=== PATIENT | male | born 1965 | race Caucasian/White ===

== ENCOUNTER → 2018-10-04 | Outpatient (CLI) | payer BC | END | disposition home or self-care (01) | LOC: RAH 08:24 | PROVIDERS: ATTEND Internal Medicine Hepatology | DX: R16.1 Splenomegaly, not elsewhere classified (principal); K75.81 Nonalcoholic steatohepatitis (NASH) | CPT/HCPCS: 76705; 93975 ==

== ENCOUNTER 2021-01-04 22:41 | Emergency (ER) | payer BC ==
[2021-01-04 23:11] LABS: APPEARANCE,URINE Clear (CLEAR); BILIRUBIN,URINE Negative (NEGATIVE); COLOR,URINE Yellow (YELLOW); GLUCOSE, URINE (UA) 500 mg/dL (NEGATIVE); KETONES,URINE Trace mg/dL (NEGATIVE); LEUKOCYTE ESTERASE ,URINE Negative (NEGATIVE); NITRATE,URINE Negative (NEGATIVE); OCCULT BLOOD,URINE Small (NEGATIVE); PH,URINE 5.5 (5.0-8.0); PROTEIN,URINE 300 mg/dL (NEGATIVE)
[2021-01-04 23:20] LABS: AMPHET/METH SCREEN,URINE NEGATIVE (NEGATIVE); BARBITURATE SCREEN, URINE NEGATIVE (NEGATIVE); BENZODIAZEPINES SCREEN,URINE NEGATIVE (NEGATIVE); CANNABINOID SCREEN,URINE POSITIVE (NEGATIVE); COCAINE SCREEN,URINE NEGATIVE (NEGATIVE); OPIATE SCREEN,URINE NEGATIVE (NEGATIVE); PHENCYCLIDINE SCREEN,URINE NEGATIVE (NEGATIVE)
[2021-01-04 23:23] LABS: BACTERIA,URINE Rare /HPF (None Seen); MUCUS,URINE Many LPF (None Seen); RBC,URINE 0-1 /HPF (0-1); SQUAMOUS EPITHELIAL CELL,UR Many /HPF (0-2)
[2021-01-04] MEDS ORDERED: HYDROCODONE/ACETAMINOPHEN 10/325 MG TAB ONE (23:25)
[2021-01-04] MEDS ORDERED: CYCLOBENZAPRINE HCL 10 MG TABLET ONE (23:25)
[2021-01-04 23:44] LABS: BASOPHILS % (AUTO) 0.5 % (0.0-5.0); EOSINOPHILS % (AUTO) 1.1 % (0.0-8.0); HEMATOCRIT 34.4 % (42-54); LYMPHOCYTES % (AUTO) 24.2 % (21.0-51.0); MEAN CORPUSCULAR HEMOGLOBIN 32.1 pg (27.0-33.0); MEAN CORPUSCULAR VOLUME 89.1 fL (79-99); MONOCYTES % (AUTO) 9.1 % (3.0-13.0); NEUTROPHILS % (AUTO) 64.8 % (40.0-77.0); PLATELET COUNT (AUTO) 107 K/uL (130-400); RED BLOOD CELL COUNT(AUTO) 3.86 MIL/uL (4.50-6.20); RED CELL DISTRIBUTION WIDTH 14.5 % (11.0-15.5); WHITE BLOOD COUNT (AUTO) 6.4 K/uL (4.8-10.8)
[2021-01-04 23:57] LABS: CARBON DIOXIDE 25 mmol/L (21-32); CHLORIDE 102 mmol/L (101-111); CREATININE 1.7 mg/dL (0.5-1.5); GLOMERULAR FILTR. RATE CALC 45 mL/min (>60); GLUCOSE,RANDOM 257 mg/dL (70-105); SODIUM SERUM 133 mmol/L (136-145); UREA NITROGEN, BLOOD 35 mg/dL (7-18)
[2021-01-05 00:01] LABS: ALANINE AMINOTRANSFERASE 23 U/L (12-78); ALBUMIN 3.7 g/dL (3.5-5.0); ASPARTATE AMINOTRANSFERASE 16 U/L (10-37); BILIRUBIN,TOTAL 0.7 mg/dL (0.2-1.0); TOTAL PROTEIN, SERUM 7.1 g/dL (6.0-8.3)
[2021-01-05 00:07] LABS: ACETAMINOPHEN < 1 mcg/mL (10-29); ALCOHOL, BLOOD < 3 mg/dL (0-10)
[2021-01-05] MEDS ORDERED: ORPHENADRINE CITRATE 30 MG/ML ML ONE (02:36)
[2021-01-05] MEDS ORDERED: KETOROLAC 60 MG VIAL (30MG/ML) ONE (02:37)
[2021-01-05] MEDS ORDERED: 0.9%NACL 1000ML 1,000 ML IV ONE (05:48)
== END 2021-01-05 11:11 | disposition home or self-care (01) ==
LOC: EDH 22:41
DX: R45.851 Suicidal ideations (principal); Z20.822 Contact with and (suspected) exposure to COVID-19; F32.9 Major depressive disorder, single episode, unspecified; I10 Essential (primary) hypertension; Z88.6 Allergy status to analgesic agent
CPT/HCPCS: 36415 ×2; 80053; 80305; 81001; 82140; 85025; 87426; 96360; 96372 ×2; 99285; G0481; J1885; J2360; J7030; U0003

== ENCOUNTER 2021-02-09 21:28 | Emergency (ER) | payer BC ==
[2021-02-09] MEDS ORDERED: MORPHINE SULFATE 4 MG/1ML SYG ONE ×2 (22:04→22:52)
[2021-02-09 22:26] LABS: BASOPHILS % (AUTO) 0.6 % (0.0-5.0); EOSINOPHILS % (AUTO) 1.9 % (0.0-8.0); HEMATOCRIT 37.2 % (42-54); LYMPHOCYTES % (AUTO) 18.1 % (21.0-51.0); MEAN CORPUSCULAR HEMOGLOBIN 31.2 pg (27.0-33.0); MEAN CORPUSCULAR HGB CONC 33.6 g/dL (32.0-36.0); MEAN CORPUSCULAR VOLUME 92.8 fL (79-99); MONOCYTES % (AUTO) 6.3 % (3.0-13.0); NEUTROPHILS % (AUTO) 72.7 % (40.0-77.0); PLATELET COUNT (AUTO) 117 K/uL (130-400); RED BLOOD CELL COUNT(AUTO) 4.01 MIL/uL (4.50-6.20); RED CELL DISTRIBUTION WIDTH 14.7 % (11.0-15.5); WHITE BLOOD COUNT (AUTO) 5.4 K/uL (4.8-10.8)
[2021-02-09 22:28] LABS: APPEARANCE,URINE Clear (CLEAR); BILIRUBIN,URINE Negative (NEGATIVE); COLOR,URINE Dark Yellow (YELLOW); GLUCOSE, URINE (UA) 250 mg/dL (NEGATIVE); KETONES,URINE 15 mg/dL (NEGATIVE); LEUKOCYTE ESTERASE ,URINE Trace (NEGATIVE); NITRATE,URINE Negative (NEGATIVE); OCCULT BLOOD,URINE Small (NEGATIVE); PROTEIN,URINE >=1000 mg/dL (NEGATIVE)
[2021-02-09 22:36] LABS: AMPHET/METH SCREEN,URINE NEGATIVE (NEGATIVE); BARBITURATE SCREEN, URINE NEGATIVE (NEGATIVE); BENZODIAZEPINES SCREEN,URINE POSITIVE (NEGATIVE); CANNABINOID SCREEN,URINE POSITIVE (NEGATIVE); COCAINE SCREEN,URINE NEGATIVE (NEGATIVE); OPIATE SCREEN,URINE NEGATIVE (NEGATIVE); PHENCYCLIDINE SCREEN,URINE NEGATIVE (NEGATIVE)
[2021-02-09 22:42] LABS: CARBON DIOXIDE 26 mmol/L (21-32); CHLORIDE 105 mmol/L (101-111); CREATININE 1.7 mg/dL (0.5-1.5); GLOMERULAR FILTR. RATE CALC 45 mL/min (>60); GLUCOSE,RANDOM 87 mg/dL (70-105); POTASSIUM 5.1 mmol/L (3.5-5.1); SODIUM SERUM 139 mmol/L (136-145); UREA NITROGEN, BLOOD 30 mg/dL (7-18)
[2021-02-09 22:46] LABS: ACETAMINOPHEN 6 mcg/mL (10-29); ALANINE AMINOTRANSFERASE 23 U/L (12-78); ALBUMIN 3.6 g/dL (3.5-5.0); ALCOHOL, BLOOD < 3 mg/dL (0-10); ASPARTATE AMINOTRANSFERASE 17 U/L (10-37); BILIRUBIN,TOTAL 0.4 mg/dL (0.2-1.0); TOTAL PROTEIN, SERUM 7.2 g/dL (6.0-8.3)
[2021-02-09 22:48] LABS: BACTERIA,URINE None Seen /HPF (None Seen); RBC,URINE 0-1 /HPF (0-1); SQUAMOUS EPITHELIAL CELL,UR Rare /HPF (0-2); WBC,URINE 0-1 /HPF (0-1); YEAST,URINE BUDDING None Seen /HPF (None Seen)
[2021-02-09] MEDS ORDERED: ORPHENADRINE CITRATE 30 MG/ML ML ONE (22:52)
[2021-02-10] MEDS ORDERED: MORPHINE SULFATE 2 MG/ML 1ML SYG ONE (10:35)
[2021-02-10] MEDS ORDERED: CYCLOBENZAPRINE HCL 10 MG TABLET ONE (10:41)
== END 2021-02-10 14:45 | disposition short-term general hospital (02) ==
LOC: EDH 21:28
DX: R45.851 Suicidal ideations (principal); G89.29 Other chronic pain; M54.5 Low back pain; F32.9 Major depressive disorder, single episode, unspecified; F41.9 Anxiety disorder, unspecified; I10 Essential (primary) hypertension; Z88.1 Allergy status to other antibiotic agents; Z95.0 Presence of cardiac pacemaker; Z79.899 Other long term (current) drug therapy; Z94.4 Liver transplant status; Z72.0 Tobacco use
CPT/HCPCS: 36415; 80053; 80305; 81001; 85025; 96372 ×4; 99285; G0481; J2270 ×2; J2360

== ENCOUNTER 2021-04-18 01:04 | Emergency (ER) | payer BC ==
[~2021-04-18] VITALS: Ht 182.9 cm; Wt 81.6 kg
[2021-04-18 02:21] VITALS: BP 128/80
[2021-04-18] MEDS ORDERED: CYCLOBENZAPRINE HCL 10 MG TABLET PO SCH (03:45)
[2021-04-18] MEDS ORDERED: MELO7.5T12 PO (03:45)
[2021-04-18] MEDS ORDERED: KETOROLAC 60 MG VIAL (30MG/ML) IM SCH (03:45)
[2021-04-18] MEDS ORDERED: LIDOP TP (03:45)
[2021-04-18] MEDS ORDERED: ORPH-43 PO (03:45)
[2021-04-18 03:57] VITALS: BP 129/77
== END 2021-04-18 04:20 | disposition home or self-care (01) ==
LOC: EDH 01:04
DX: F43.9 Reaction to severe stress, unspecified (principal); G89.29 Other chronic pain; M54.6 Pain in thoracic spine; R11.2 Nausea with vomiting, unspecified; M62.838 Other muscle spasm
CPT/HCPCS: 96372; 99284; J1885

== ENCOUNTER 2022-03-30 21:47 | Emergency (ER) | payer BC ==
[~2022-03-30] VITALS: Ht 181.6 cm; Wt 90.7 kg
[~2022-03-30 21:47] MED LIST: LIDOP TP; MELO7.5T12 PO; ORPH-43 PO
[2022-03-30 22:17] LABS: BASOPHILS % (AUTO) 0.4 % (0.0-5.0); HEMATOCRIT 33.1 % (42-54); LYMPHOCYTES % (AUTO) 22.5 % (21.0-51.0); MEAN CORPUSCULAR HEMOGLOBIN 31.9 pg (27.0-33.0); MEAN CORPUSCULAR HGB CONC 35.3 g/dL (32.0-36.0); MEAN CORPUSCULAR VOLUME 90.2 fL (79-99); MONOCYTES % (AUTO) 8.4 % (3.0-13.0); PLATELET COUNT (AUTO) 116 K/uL (130-400); RED BLOOD CELL COUNT(AUTO) 3.67 MIL/uL (4.50-6.20); RED CELL DISTRIBUTION WIDTH 13.7 % (11.0-15.5); WHITE BLOOD COUNT (AUTO) 5.4 K/uL (4.8-10.8)
[2022-03-30] MEDS ORDERED: LORAZEPAM 2 MG/ML 1 ML VIAL IVP ONE (22:30)
[2022-03-30] MEDS ORDERED: KETOROLAC 15MG/ML VIAL (15MG/ML) IV ONE (22:30)
[2022-03-30 22:31] LABS: POTASSIUM 5.5 mmol/L (3.5-5.1)
[2022-03-30 22:48] LABS: ALBUMIN 3.2 g/dL (3.5-5.0); BILIRUBIN,TOTAL 0.3 mg/dL (0.2-1.0); CREATININE 1.7 mg/dL (0.5-1.5); TOTAL PROTEIN, SERUM 6.4 g/dL (6.0-8.3)
[2022-03-30 23:13] VITALS: BP 129/82
== END 2022-03-30 23:30 | disposition home or self-care (01) ==
LOC: EDH 21:47
DX: R07.89 Other chest pain (principal); F43.0 Acute stress reaction; Z20.822 Contact with and (suspected) exposure to COVID-19; E11.9 Type 2 diabetes mellitus without complications; I10 Essential (primary) hypertension; F17.210 Nicotine dependence, cigarettes, uncomplicated; Z86.73 Personal history of transient ischemic attack (TIA), and cerebral infarction without residual deficits; Z98.890 Other specified postprocedural states
CPT/HCPCS: 36415; 71045; 80053; 84484; 85025; 87635; 93005; 96374; 96375; 99284; C9803; J1885; J2060

== ENCOUNTER 2025-01-15 10:35 | Emergency (ER) | payer BC ==
[~2025-01-15] VITALS: Ht 180.3 cm; Wt 90.7 kg
[~2025-01-15 10:35] MED LIST changes: +AMLO-258 PO; +ATOR40TA69 PO; +BUSP10TA3 PO; +CARV6.25 PO; +CLOP75TA32 PO; +FAMO20TA8 PO; +FOLI1TAB85 PO; +FURO20TA4 PO; +GABA-534 PO; +HYDR50TA37 PO; +ISOS10TA2 PO; -LIDOP TP; +LOSA50TA64 PO; +MAGN400T7 PO; -MELO7.5T12 PO; +NIFE-78 PO; -ORPH-43 PO; +POLY510P31 PO; +SODI10PO2 PO; +SUCR1TAB2 PO; +TACR1 PO; +TAMS-1 PO; +TORS20TA4 PO; +TRAZ-185 PO; +VALG450T15 PO
--- NOTE | 2025-01-15 11:34 | ERN ---
General Chief Complaint: Weakness Stated Complaint: WEAKNESS Time Seen by MD: 10:37 History of Present Illness Initial Comments 59-year-old male, history of liver transplant on immunosuppression tacrolimus, dyslipidemia, hypertension, diabetes, pacemaker, brought in by EMS for or of the residents for general body weakness, dizziness, cough and some dyspnea. Patient reports he has had a week or so of on and off fevers and a productive cough. He feels a little bit short of breath. No nausea or vomiting. No diarrhea. No ab dominal pains. He does have a sick contact with the flu. Allergies: Coded Allergies: clindamycin (Unverified Allergy, Unknown, 09/09/24) Home Meds Active Scripts Levofloxacin (Levaquin 750Mg Tabs) 750 Mg Tablet, 1 TAB PO DAILY for 10 Days, #10 TAB 0 Refills Prov:CHIARA LUTHER DO 01/15/25 Reported Medications Sodium Zirconium Cyclosilicate (Lokelma) 10 Gram Powd.pack, 1 PACKET PO DAILY for 30 Days, #30 PACKET 0 Refills 10/10/24 Atorvastatin Calcium (LIPITOR) 40 Mg Tablet, 1 TAB PO DAILY for 30 Days, #30 TAB 0 Refills 10/10/24 Buspirone HCl (Buspirone HCl) 10 Mg Tablet, 1 TAB PO BID for 30 Days, #60 TAB 0 Refills 10/10/24 Furosemide (Furosemide) 20 Mg Tablet, 0.5 TAB PO DAILY for 30 Days, #30 TAB 0 Refills 10/10/24 Losartan Potassium (Losartan Potassium) 50 Mg Tablet, 1 TAB PO BID for 30 Days, #30 TAB 0 Refills 10/10/24 Gabapentin (Gabapentin) 400 Mg Capsule, 300 MG PO TID, CAP 10/10/24 Polyethylene Glycol 3350 ([id number]) 17 Gram/Dose Powder, 17 GM PO DAILY 09/25/24 Torsemide (Torsemide) 20 Mg Tablet, 1 TAB PO DAILY 09/25/24 Tacrolimus Anhydrous (Prograf/Fk-506) 1 Mg Cap, 1 CAP PO BID 09/24/24 Magnesium Oxide (Mag-Ox) 400 Mg Tab, 1 TAB PO BID for 30 Days, #60 TAB 0 Refills 09/09/24 Vit B Cmplx 3/FA/Vit C/Biotin (Peyton-Renan Rx Tablet) 1 Mg-60 Mg-300 Mcg Tablet, 1 TAB PO DAILY for 30 Days, #30 TAB 0 Refills 09/09/24 Sucralfate (Sucralfate) 1 Gram Tablet, 1 TAB PO BID for 30 Days, #90 TAB 0 Refills 09/09/24 Hydralazine HCl (Hydralazine HCl) 50 Mg Tablet, 1 TAB PO BID for 30 Days, #60 TAB 0 Refills 09/09/24 Valganciclovir HCl (Valganciclovir HCl) 450 Mg Tablet, 1 TAB PO DAILY for 30 Days, #30 TAB 0 Refills 09/09/24 Nifedipine (Nifedipine ER) 30 Mg Tablet.er, 1 TAB PO DAILY for 30 Days, #30 TAB 0 Refills 09/09/24 Clopidogrel Bisulfate (Clopidogrel) 75 Mg Tablet, 1 TAB PO DAILY for 30 Days, #30 TAB 0 Refills 09/09/24 Famotidine (Famotidine) 20 Mg Tablet, 20 MG PO HS PRN for INDIGESTION, TAB 09/09/24 Carvedilol (Carvedilol) 6.25 Mg Tablet, 1 TAB PO BID for 30 Days, #60 TAB 0 Refills 09/09/24 Amlodipine Besylate (Amlodipine Besylate) 10 Mg Tablet, 1 TAB PO DAILY for 30 Days, #30 TAB 0 Refills 09/09/24 Tamsulosin HCl (Flomax) 0.4 Mg Cap.er.24h, 1 CAP PO DAILY for 30 Days, #30 CAP 0 Refills 09/09/24 Isosorbide Dinitrate (Isosorbide Dinitrate) 10 Mg Tablet, 1 TAB PO BID for 30 Days, #60 TAB 0 Refills 09/09/24 Trazodone HCl (Trazodone HCl) 50 Mg Tablet, 1 TAB PO HS for 30 Days, #30 TAB 0 Refills 09/09/24 Past Medical History Past Medical History: Diabetes-Type II, Hypertension Medical History Other: HX LIVER DISEASE, CHRONIC DIZZINESS Past Surgical History: Other Surgical History Other: LIVER TRANSPLANT Social History Social History: Smokers, Other Results Laboratory and Microbiology Lab and Micro Result Laboratory Tests Test 01/15/25 12:02 01/15/25 13:13 White Blood Count 5.3 K/uL (4.8-10.8) Red Blood Count 3.13 MIL/uL (4.50-6.20) L Hemoglobin 10.5 g/dL (14.0-18.0) L Hematocrit 30.8 % (42-54) L Mean Corpuscular Volume 98.4 fL (79-99) Mean Corpuscular Hemoglobin 33.5 pg (27.0-33.0) H Mean Corpuscular Hemoglobin Concent 34.1 g/dL (32.0-36.0) Red Cell Distribution Width 15.5 % (11.0-15.5) Platelet Count 78 K/uL (130-400) L Mean Platelet Volume 9.4 fL (7.5-10.5) Immature Granulocyte % (Auto) 0.6 % (0-1) Neutrophils (%) (Auto) 80.6 % (40.0-77.0) H Lymphocytes (%) (Auto) 14.8 % (21.0-51.0) L Monocytes (%) (Auto) 2.7 % (3.0-13.0) L Eosinophils (%) (Auto) 0.9 % (0.0-8.0) Basophils (%) (Auto) 0.4 % (0.0-5.0) Neutrophils # (Auto) 4.3 K/uL (1.8-7.7) Lymphocytes # (Auto) 0.8 K/uL (1.0-4.8) L Monocytes # (Auto) 0.1 K/uL (0.1-1.0) Eosinophils # (Auto) 0.05 K/uL (0.00-0.70) Basophils # (Auto) 0.02 K/uL (0.00-0.20) Absolute Immature Granulocyte (auto 0.03 K/uL (0-1) Nucleated Red Blood Cells 0.0 % (0.0-0.19) Sodium Level 134 mmol/L (136-145) L Potassium Level 5.6 mmol/L (3.5-5.1) H Chloride Level 104 mmol/L (101-111) Carbon Dioxide Level 23 mmol/L (21-32) Blood Urea Nitrogen 46 mg/dL (7-18) H Creatinine 2.3 mg/dL (0.5-1.3) H Glomerular Filtration Rate Calc 32 mL/min (>90) Random Glucose 134 mg/dL (70-105) H Lactic Acid Level 0.8 mmol/L (0.8-2.5) Total Calcium 8.7 mg/dL (8.5-10.1) Total Creatine Kinase 48 U/L (21-232) Troponin I High Sensitivity 33.5 ng/L (4-75) B-Type Natriuretic Peptide 249 pg/mL (0-100) H Procalcitonin 0.07 ng/mL (0.05-0.5) Urine Color YELLOW (YELLOW) Urine Appearance CLEAR (CLEAR) Urine pH 6.0 (5.0-8.0) Urine Specific [place] 1.017 (1.001-1.031) Urine Protein 200 mg/dL (NEGATIVE) H Urine Glucose (UA) 50 mg/dL (NEGATIVE) H Urine Ketones NEGATIVE mg/dL (NEGATIVE) Urine Occult Blood NEGATIVE (NEGATIVE) Urine Nitrate NEGATIVE (NEGATIVE) Urine Bilirubin NEGATIVE mg/dL (NEGATIVE) Urine Urobilinogen 0.2 mg/dL (0.2-1.0) Urine Leukocyte Esterase NEGATIVE Samuel/uL Urine RBC 6-10 /HPF (0-1) H Urine WBC 2-5 /HPF (0-1) H Urine Bacteria None /HPF (None Seen) Influenza Type A Antigen Negative For Type A Influenza Type B Antigen Negative For Type B SARS-CoV-2 Antigen (Rapid) PRESUMPTIVE NEGATIVE MDM CC: Weakness, productive cough, flu-like symptoms Historian: Patient Comorbidities: Diabetes type 2, hypertension, liver disease, immunosuppression Differential diagnosis: Flu, infection, dehydration, generalized weakness, other. Vital signs: Stable, remained stable here in the ER labs (no leukocytosis, left shift 80% neutrophils. Normocytic anemia hemoglobin 10.5. Chemistry panel shows CKD, potassium is 5.6, creatinine 2.3. Lactic acid stable. Troponin x2 is normal. BNP normal. Procalcitonin normal. CXR ( independently interpreted by me ): Mild pulmonary infiltrates consistent with a pneumonia. EKG: paced rhythm, rate 64, left axis deviation, delayed R-wave progression intervals are stable no STEMI. Independently interpreted by me. Clinically patient has weakness, he had a fever, he was brought to cough, we will treat as community-acquired pneumonia since he was immunosuppressed. He also has mild hyperkalemia that which we will treat here. Treatment in ED: Rocephin, azithromycin, albuterol nebulizer Consultation: hospitalist for admission ED Course Orders Procedure Category Date Status Time Iv Insertion CPOE 01/15/25 Transmitted 10:47 Pulse Ox(Continuous) RT 01/15/25 Transmitted 10:47 Vital Signs Per CPOE 01/15/25 Transmitted Routine 10:47 12 Lead Ekg Tracing- EKG 01/15/25 Resulted Technical 10:47 Cbc With Differential LAB 01/15/25 Complete 10:47 Blood Cult BREEZY 01/15/25 Complete 10:47 Urinalysis Profile LAB 01/15/25 Complete 10:47 Culture Urine BREEZY 01/15/25 Complete 10:47 Creatine Kinase, Total LAB 01/15/25 Complete 10:47 Troponin I High LAB 01/15/25 Complete Sensitivity 10:47 Lactic Acid LAB 01/15/25 Complete 10:47 Basic Metabolic Panel LAB 01/15/25 Complete 10:47 Chest 1vw RAD 01/15/25 Resulted 11:27 Cardiac Panel LAB 01/15/25 Complete 11:27 B-Type Natriuretic LAB 01/15/25 Complete Peptide 11:27 Procalcitonin LAB 01/15/25 Complete 11:27 Ketorolac PHA 01/15/25 Complete Tromethamine 15mg/Ml 11:30 Acetaminophen 500mg PHA 01/15/25 Complete Tab (Tylenol 500mg T 11:30 Lactated Ringers PHA 01/15/25 Complete 1000ml (Lactated 11:30 Covid19 (Sars Antigen LAB 01/15/25 Complete Rapid) 12:54 Influenza Type A & B, LAB 01/15/25 Complete Rapid 12:54 Ceftriaxone 1g Vial PHA 01/15/25 Complete (Rocephine 1g Inj) 14:30 Azithromycin PHA 01/15/25 Complete (Zithromax) 14:30 Albuterol 0.083% PHA 01/15/25 Complete 2.5mg/3ml (Proventil 14:30 Vital Signs Date Time Temp Pulse Resp B/P (MAP) Pulse Ox O2 Delivery O2 Flow Rate FiO2 01/15/25 15:56 70 16 01/15/25 15:45 98.2 70 16 129/53 98 Room Air* 0 01/15/25 12:57 100.6 01/15/25 12:09 98.6 66 16 149/63 97 Room Air* 0 01/15/25 10:36 100.6 63 17 166/77 97 Room Air 0 DX & DISP Disposition: Discharge Departure Impression: Primary Impression: CAP (community acquired pneumonia) Additional Impressions: Immunosuppression, Hyperkalemia, CKD (chronic kidney disease) Condition: Stable Scripts Levofloxacin (Levaquin 750Mg Tabs) 750 Mg Tablet 1 TAB PO DAILY for 10 Days, #10 TAB 0 Refills Prov: CHIARA LUTHER DO 01/15/25 Additional Instructions: Your symptoms are consistent with a community-acquired pneumonia I have prescribed Levaquin. Take as prescribed. This is an antibiotic. The rest of your blood work is unremarkable. Please drink plenty of liquids. Ensure adequate nutrition. I recommend heating plenty of fruits and vegetables why your body is healing. Take all your home medications. Please return to the emergency department as needed. Referrals: VEE SANDS MD (PCP) CHIARA LUTHER DO Jan 15, 2025 11:34
[2025-01-15 12:14] LABS: BASOPHILS # (AUTO) 0.02 K/uL (0.00-0.20); BASOPHILS % (AUTO) 0.4 % (0.0-5.0); EOSINOPHILS # (AUTO) 0.05 K/uL (0.00-0.70); EOSINOPHILS % (AUTO) 0.9 % (0.0-8.0); HEMATOCRIT 30.8 % (42-54); IMMATURE GRANULOCYTE ABSOLUTE 0.03 K/uL (0-1); LYMPHOCYTES # (AUTO) 0.8 K/uL (1.0-4.8); LYMPHOCYTES % (AUTO) 14.8 % (21.0-51.0); MEAN CORPUSCULAR HEMOGLOBIN 33.5 pg (27.0-33.0); MEAN CORPUSCULAR HGB CONC 34.1 g/dL (32.0-36.0); MEAN CORPUSCULAR VOLUME 98.4 fL (79-99); MONOCYTES # (AUTO) 0.1 K/uL (0.1-1.0); MONOCYTES % (AUTO) 2.7 % (3.0-13.0); NEUTROPHILS # (AUTO) 4.3 K/uL (1.8-7.7); NEUTROPHILS % (AUTO) 80.6 % (40.0-77.0); PLATELET COUNT (AUTO) 78 K/uL (130-400); RED BLOOD CELL COUNT(AUTO) 3.13 MIL/uL (4.50-6.20); RED CELL DISTRIBUTION WIDTH 15.5 % (11.0-15.5); WHITE BLOOD COUNT (AUTO) 5.3 K/uL (4.8-10.8)
[2025-01-15 12:28] LABS: CREATININE 2.3 mg/dL (0.5-1.3); POTASSIUM 5.6 mmol/L (3.5-5.1)
--- NOTE | 2025-01-15 12:28 | HMCIMG ---
CHEST 1VW HISTORY: Cough COMPARISON: None FINDINGS: A frontal projection of the chest was obtained. Mild bilateral pulmonary infiltrates are seen may be related to mild pulmonary vascular congestion with possible superimposed pneumonitis. The heart is borderline enlarged. Pacemaker is seen entering from the left. Degenerative changes are seen. No evidence of aortic calcification is seen. IMPRESSION: 1. Mild bilateral pulmonary infiltrates are seen may be related to mild pulmonary vascular congestion with possible superimposed pneumonitis.
[2025-01-15] MEDS: LACTATED RINGERS 1000ML 1,000 ML IV ONE (12:57)
[2025-01-15] MEDS: acetaMINOPHEN 500 MG TABLET PO ONE (12:57)
[2025-01-15] MEDS: ketOROlac 15MG/ML VIAL (15MG/ML) IV ONE (12:58)
[2025-01-15 13:00] VITALS: PULSE 90; RESP 18
[2025-01-15 13:23] LABS: APPEARANCE,URINE CLEAR (CLEAR); BILIRUBIN,URINE NEGATIVE (NEGATIVE); COLOR,URINE YELLOW (YELLOW); GLUCOSE, URINE (UA) 50 mg/dL (NEGATIVE); KETONES,URINE NEGATIVE (NEGATIVE); LEUKOCYTE ESTERASE ,URINE NEGATIVE Leu/uL (NEGATIVE); NITRATE,URINE NEGATIVE (NEGATIVE); OCCULT BLOOD,URINE NEGATIVE (NEGATIVE); PROTEIN,URINE 200 mg/dL (NEGATIVE); UROBILINOGEN,URINE 0.2 mg/dL (0.2-1.0)
[2025-01-15 13:31] LABS: ADD UA MICROSCOPIC YES
--- NOTE | 2025-01-15 13:31 | EKG ---
[facility] Test Date: 2025-01-15 Test Time: 11:18:35 Pat Name: DORA ALCALA Department: [facility] Room: Gender: M Intervention Teacher: [id number] : 1965 Requested By: CHIARA LUTHER Order Number: [id number] Reading MD: Joe Levy Measurements Intervals [place] Rate: 64 P: 215 TN: 201 QRS: -75 QRSD: 124 T: 82 QT: 427 QTc: 440 Interpretive Statements Ventricular-paced rhythm Compared to ECG 09/22/2024 23:26:05 No significant changes Electronically Signed On 01-15-2025 18:59:40 HEAD [employer]LLH[employer] CAPTAIN by Joe Levy Please click the below link to view image of tracing.
[2025-01-15 13:39] LABS: MUCUS,URINE RARE LPF (None Seen)
[2025-01-15 13:46] LABS: INFLUENZA TYPE A Negative For Type A (NEGATIVE); INFLUENZA TYPE B Negative For Type B (NEGATIVE)
[2025-01-15 13:49] LABS: COVID19 (SARS ANTIGEN RAPID) PRESUMPTIVE NEGATIVE (NEGATIVE)
[2025-01-15 14:35] VITALS: TEMP 98.3
[2025-01-15] MEDS: AZITHROMYCIN 250 MG TABLET PO ONE (14:35)
[2025-01-15] MEDS: cefTRIAXone 1G VIAL IVPB ONE (14:35)
[2025-01-15] MEDS ORDERED: LEVO750T68 PO (15:42)
[2025-01-15 15:45] VITALS: BP 129/53; TEMP 98.3; O2SAT 98
[2025-01-15] MEDS: ALBUTEROL 0.083% 2.5 MG/3 ML INH IH ONE (15:54)
[2025-01-15 15:56] VITALS: PULSE 70; RESP 16
--- NOTE | 2025-01-15 15:56 | NUR ---
DEPART DELAY DUE TO PENDING RT TREATMENT
== END 2025-01-15 16:11 | disposition home or self-care (01) ==
LOC: EDH 10:35
DX: I12.9 Hypertensive chronic kidney disease with stage 1 through stage 4 chronic kidney disease, or unspecified chronic kidney disease (principal); E11.22 Type 2 diabetes mellitus with diabetic chronic kidney disease; N18.9 Chronic kidney disease, unspecified; J18.9 Pneumonia, unspecified organism; D84.821 Immunodeficiency due to drugs; E87.5 Hyperkalemia; F17.200 Nicotine dependence, unspecified, uncomplicated; Z79.621 Long term (current) use of calcineurin inhibitor; Z79.624 Long term (current) use of inhibitors of nucleotide synthesis; Z79.02 Long term (current) use of antithrombotics/antiplatelets; Z79.899 Other long term (current) drug therapy; Z88.1 Allergy status to other antibiotic agents; Z94.4 Liver transplant status; Z95.0 Presence of cardiac pacemaker; Z20.822 Contact with and (suspected) exposure to COVID-19
CPT/HCPCS: 99284; 96374; 96361; 71045; 96375; 87426; 82550 ×2; 84484 ×2; 80048; 83880; 85025; 87040 ×2; 87086; 87804 ×2; 83605; 81001; 36415; 93005; 94640; 84145; J1885; J7120; J0696

== ENCOUNTER 2025-02-10 16:17 | Emergency (ER) | payer BC ==
[~2025-02-10] VITALS: Ht 180.3 cm; Wt 77.1 kg
[~2025-02-10 16:17] MED LIST changes: +LEVO750T68 PO
[2025-02-10 16:18] VITALS: BP 172/79; PULSE 64; RESP 20
--- NOTE | 2025-02-10 16:18 | NUR ---
PT REFUSING C COLLAR, IV, AND LABS. DR SANDHU MADE AWARE.
[2025-02-10] MEDS ORDERED: acetaMINOPHEN 500 MG TABLET ONE (17:47)
[2025-02-10] MEDS: acetaMINOPHEN 500 MG TABLET PO ONE (18:16)
--- NOTE | 2025-02-10 18:35 | ERN ---
General Chief Complaint: Multiple Trauma/Fall Stated Complaint: FALL Time Seen by MD: 16:19 Source: patient History of Present Illness Initial Comments PATIENT IS A 59-YEAR-OLD MALE COMING IN TO BE EVALUATED FOR A FALL. PER PATIENT HE FELL IN THE MUD AND LANDED IN HIS LEFT ARM. HE STATES HE HAS PAIN IN HIS LEFT ARM LOWER BACK AND TRAPEZIUS MUSCLES. NO LOSS OF CONSCIOUSNESS ON FALL. Allergies: Coded Allergies: clindamycin (Unverified Allergy, Unknown, 09/09/24) Home Meds Active Scripts Levofloxacin (Levaquin 750Mg Tabs) 750 Mg Tablet, 1 TAB PO DAILY for 10 Days, #10 TAB 0 Refills Prov:CHIARA LUTHER 01/15/25 Reported Medications Sodium Zirconium Cyclosilicate (Lokelma) 10 Gram Powd.pack, 1 PACKET PO DAILY for 30 Days, #30 PACKET 0 Refills 10/10/24 Atorvastatin Calcium (LIPITOR) 40 Mg Tablet, 1 TAB PO DAILY for 30 Days, #30 TAB 0 Refills 10/10/24 Buspirone HCl (Buspirone HCl) 10 Mg Tablet, 1 TAB PO BID for 30 Days, #60 TAB 0 Refills 10/10/24 Furosemide (Furosemide) 20 Mg Tablet, 0.5 TAB PO DAILY for 30 Days, #30 TAB 0 Refills 10/10/24 Losartan Potassium (Losartan Potassium) 50 Mg Tablet, 1 TAB PO BID for 30 Days, #30 TAB 0 Refills 10/10/24 Gabapentin (Gabapentin) 400 Mg Capsule, 300 MG PO TID, CAP 10/10/24 Polyethylene Glycol 3350 ([id number]) 17 Gram/Dose Powder, 17 GM PO DAILY 09/25/24 Torsemide (Torsemide) 20 Mg Tablet, 1 TAB PO DAILY 09/25/24 Tacrolimus Anhydrous (Prograf/Fk-506) 1 Mg Cap, 1 CAP PO BID 09/24/24 Magnesium Oxide (Mag-Ox) 400 Mg Tab, 1 TAB PO BID for 30 Days, #60 TAB 0 Refills 09/09/24 Vit B Cmplx 3/FA/Vit C/Biotin (Peyton-Renan Rx Tablet) 1 Mg-60 Mg-300 Mcg Tablet, 1 TAB PO DAILY for 30 Days, #30 TAB 0 Refills 09/09/24 Sucralfate (Sucralfate) 1 Gram Tablet, 1 TAB PO BID for 30 Days, #90 TAB 0 Refills 09/09/24 Hydralazine HCl (Hydralazine HCl) 50 Mg Tablet, 1 TAB PO BID for 30 Days, #60 TA B 0 Refills 09/09/24 Valganciclovir HCl (Valganciclovir HCl) 450 Mg Tablet, 1 TAB PO DAILY for 30 Days, #30 TAB 0 Refills 09/09/24 Nifedipine (Nifedipine ER) 30 Mg Tablet.er, 1 TAB PO DAILY for 30 Days, #30 TAB 0 Refills 09/09/24 Clopidogrel Bisulfate (Clopidogrel) 75 Mg Tablet, 1 TAB PO DAILY for 30 Days, #30 TAB 0 Refills 09/09/24 Famotidine (Famotidine) 20 Mg Tablet, 20 MG PO HS PRN for INDIGESTION, TAB 09/09/24 Carvedilol (Carvedilol) 6.25 Mg Tablet, 1 TAB PO BID for 30 Days, #60 TAB 0 Refills 09/09/24 Amlodipine Besylate (Amlodipine Besylate) 10 Mg Tablet, 1 TAB PO DAILY for 30 Days, #30 TAB 0 Refills 09/09/24 Tamsulosin HCl (Flomax) 0.4 Mg Cap.er.24h, 1 CAP PO DAILY for 30 Days, #30 CAP 0 Refills 09/09/24 Isosorbide Dinitrate (Isosorbide Dinitrate) 10 Mg Tablet, 1 TAB PO BID for 30 Days, #60 TAB 0 Refills 09/09/24 Trazodone HCl (Trazodone HCl) 50 Mg Tablet, 1 TAB PO HS for 30 Days, #30 TAB 0 Refills 09/09/24 Past Medical History Past Medical History: Diabetes-Type II, Hypertension Medical History Other: HX LIVER DISEASE, CHRONIC DIZZINESS Past Surgical History: Other Surgical History Other: LIVER TRANSPLANT Social History Social History: Smokers, Other ROS Dictation CONSTITUTIONAL: NO CHILLS, NO FEVER, NO WEAKNESS, NO DIAPHORESIS, NO MALAISE. HEAD/FACE: NO SIGNS OF TRAUMA. EENT: NO EYE PAIN, NO BLURRED VISION, NO TEARING, NO DOUBLE VISION, NO EAR PAIN, NO EAR DISCHARGE, NO NOSE PAIN, NO NASAL CONGESTION, NO THROAT PAIN, NO THROAT SWELLING, NO MOUTH PAIN. RESPIRATORY: NO COUGH, NO ORTHOPNEA, NO SOB, NO STRIDOR, NO WHEEZING. CARDIOVASCULAR: NO CHEST PAIN, NO EDEMA, NO PALPITATIONS, NO SYNCOPE. GASTROINTESTINAL/ABDOMINAL: NO ABDOMINAL PAIN, NO CONSTIPATION, NO DIARRHEA, NO NAUSEA, NO VOMITING. GENITOURINARY: NO ABNORMAL DISCHARGE, NO DYSURIA, NO FREQUENT URINATION, NO HEMATURIA. NO COMPLAINTS OF PAIN IN THE GENITALS. MUSCULOSKELETAL: BACK PAIN, NO GOUT, JOINT PAIN, NO JOINT SWELLING, MUSCLE PAIN, NO MUSCLE STIFFNESS, NO NECK PAIN. INTEGUMENTARY: NO CHANGE IN COLOR, NO CHANGE IN HAIR/NAILS, NO DRYNESS, NO LESION, NO LUMPS, NO RASH. NEUROLOGICAL/PSYCH: NO ANXIETY, NOT DEPRESSED, NO EMOTIONAL PROBLEM, NO HEADACHE, NO NUMBNESS, NO PRE-EXISTING DEFICIT, NO HISTORY OF SEIZURES, NO TREMORS, NO WEAKNESS. HEMATOLOGIC/LYMPHATIC: NOT ANEMIC, NO HISTORY OF BLOOD CLOTS, NO APPARENT BLEEDING, NO BRUISING, GLANDS NOT SWOLLEN. ALL SYSTEMS NEGATIVE, EXCEPT NOTED. Physical Exam Physical Exam Dictation VITAL SIGNS: REVIEWED. GENERAL APPEARANCE: ALERT, ORIENTED X3, NO ACUTE DISTRESS, OBESE. HEAD AND FACE: NON-TRAUMATIC. EYES: PERRL, PINK CONJUNCTIVAS, EYELID NO TRAUMA, ANTERIOR CHAMBER CLEAR. EARS: PINNAS INTACT AND NO SIGNS OF TRAUMA OR ERYTHEMA. EAR CANALS CLEAR AND NO DISCHARGE. TMS NO ERYTHEMA. NOSE: NO DISCHARGE, NO BLEEDING. OROPHARYNX: MOUTH NORMAL, TEETH NO CARIES, TONGUE PINK. PHARYNX CLEAR, NO ERYTHEMA. TONSILS NO EXUDATES, NO ABSCESSES NOTED. MUCOUS MEMBRANE MOIST. NECK: SUPPLE, NON-TENDER, NO THYROMEGALY, NO MASSES, NO JVD, NO BRUITS. BREAST: DEFERRED. CHEST: NO TENDERNESS, NO CREPITUS, NO PARADOXICAL MOVEMENT, NO RETRACTIONS. LUNGS: CLEAR, WELL-VENTILATED, SYMMETRIC, NO RALES, NO WHEEZING, NO RHONCHI, NO STRIDOR, GOOD BREATH SOUNDS BILATERALLY. HEART: REGULAR RATE, REGULAR RHYTHM, NO MURMUR, NO GALLOPS. VASCULAR: NO PERIPHERAL EDEMA. ABDOMEN: SOFT, POSITIVE BOWEL SOUNDS, NONDISTENDED, NO GUARDING, NONTENDER, NO REBOUND, NO MASSES NO HEPATOMEGALY, NO SPLENOMEGALY, NO HIDALGO'S SIGN, NO HERNIAS. RECTAL: DEFERRED. GENITAL: DEFERRED. NEUROLOGICAL: NORMAL SPEECH, GROSS MOTOR FUNCTION INTACT, GROSS SENSORY FUNCTION INTACT. MUSCULOSKELETAL: NECK NONTENDER, FULL RANGE OF MOTION, CUSTOMER SERVICE TRAINER, FULL RANGE OF MOTION. EXTREMITIES: NONTENDER, FULL RANGE OF MOTION. LEFT UPPER SUDDENLY SYMPTOMS SKIN: COLOR PINK, DRY, NO TURGOR, NO RASH, NO LACERATIONS, NO ABRASIONS, NO CONTUSIONS. LYMPHATICS: DEFERRED. Results Laboratory and Microbiology Labs Reviewed?: Yes EKG/XRAY/US/CT/MRI X-RAY Comment X-RAY LEFT ARM- NAD X-RAY CERVICAL- NAD \ MDM MDM: DIFFERENTIAL DIAGNOSIS: FALL, PATIENT IS A 67-YEAR OLD MALE COMING IN TO BE EVALUATED AFTER HE HAD A FALL. WAS ADVISED BY NURSING STAFF THE PATIENT ELOPED WITHOUT NOTIFYING ANYBODY. ED Course Orders Procedure Category Date Status Time Lumbar Spine 2-3vws RAD 02/10/25 Logged 16:22 Forearm 2vws Lt RAD 02/10/25 Resulted 16:22 Cerv Spine 2-3vws RAD 02/10/25 Resulted 16:22 Acetaminophen 500mg PHA 02/10/25 Complete Tab (Tylenol 500mg T 17:47 Acetaminophen 500mg PHA 02/10/25 Complete Tab (Tylenol 500mg T 18:00 Current Medications Medications (Trade) Dose Ordered Sig/Gertrude Route PRN Reason Start Time Stop Time Status Last Admin Dose Admin Acetaminophen (TYLenol 500MG TAB) 500 mg STK-MED ONCE .ROUTE 02/10/25 17:47 02/10/25 17:47 DC Acetaminophen (TYLenol 500MG TAB) 1,000 mg ONCE ONCE PO 02/10/25 18:00 02/10/25 18:01 DC 02/10/25 18:16 Vital Signs Date Time Temp Pulse Resp B/P (MAP) Pulse Ox O2 Delivery O2 Flow Rate FiO2 02/10/25 16:18 64 20 172/79 99 0 DX & DISP Disposition: AMA Departure Impression: Primary Impression: Fall Condition: Against Medical Advice Additional Instructions: WAS NOTIFIED BY NURSING STAFF THE PATIENT ELOPED Referrals: VEE SANDS MD (PCP) NII SANDHU MD Feb 10, 2025 18:35
--- NOTE | 2025-02-10 18:46 | HMCIMG ---
LEFT FOREARM RADIOGRAPHS - 2 VIEWS INDICATION: Pain COMPARISON: None FINDINGS: AP and lateral views. No fracture or dislocation identified. No radiopaque foreign body noted. Multiple miniscule vascular calcifications along the posteromedial left forearm superficial soft tissues. IMPRESSION: No evidence for fracture or dislocation.
--- NOTE | 2025-02-10 18:46 | HMCIMG ---
CERVICAL SPINE RADIOGRAPHS - 2-3 VIEWS INDICATION: Pain COMPARISON: None FINDINGS: AP, lateral, and odontoid views. Straightening of the normal lordosis may be related to overlying muscle spasm, underlying degenerative joint disease and/or patient positioning. No acute fracture or malalignment identified. Prevertebral soft tissues are not swollen. The atlanto-dens interval is within normal limits for patient's age. Spot view of the odontoid is without evidence for fracture. Vertebral body heights are within normal limits. Mild anterior endplate osteophytic spurring at the C4-5 level and mild to moderate at the C5-C6 and C6-C7 level. Moderate disc height loss at the C5-C6 level. Multilevel mild to moderate facet disease. Mild to moderate calcific plaque near the left common carotid arterial bulb valencia. Visible lung apices are clear. IMPRESSION: Degenerative changes as described, without acute component.
== END 2025-02-10 19:00 | disposition left against medical advice (07) ==
LOC: EDH 16:17
DX: M79.602 Pain in left arm (principal); E11.9 Type 2 diabetes mellitus without complications; I10 Essential (primary) hypertension; F17.200 Nicotine dependence, unspecified, uncomplicated; Z79.02 Long term (current) use of antithrombotics/antiplatelets; Z79.621 Long term (current) use of calcineurin inhibitor; Z79.624 Long term (current) use of inhibitors of nucleotide synthesis; Z79.899 Other long term (current) drug therapy; Z88.1 Allergy status to other antibiotic agents; Z94.4 Liver transplant status; W18.39XA Other fall on same level, initial encounter; Y93.89 Activity, other specified; Y92.89 Other specified places as the place of occurrence of the external cause; Y99.8 Other external cause status
CPT/HCPCS: 72040; 73090; 99283